=== PATIENT | male | born 2000 ===

== ENCOUNTER 2021-12-13 06:24 | Emergency (ER) | payer OTHER ==
[2021-12-13] MEDS ORDERED: NALOXONE 0.4 MG/ML 1 ML VIAL IV STA (06:27)
[2021-12-13] MEDS ORDERED: SODIUM CHLORIDE 0.9% 500 ML 500 ML IV STA (06:27)
[2021-12-13] MEDS ORDERED: SODIUM CHLORIDE 0.9% 1,000 ML IV STA ×2 (06:27)
[2021-12-13 06:29] LABS: Glucose,Whole Blood 137 mg/dL (75-99)
--- NOTE | 2021-12-13 06:49 | XR ---
EXAMINATION TYPE: XR chest 1V portable DATE OF EXAM: 12/13/2021 COMPARISON: NONE HISTORY: Altered mental status TECHNIQUE: Single view FINDINGS: Heart is enlarged. There is some pulmonary interstitial edema. There are chest leads. There is no definite pleural effusion. IMPRESSION: Moderate cardiomegaly. Mild pulmonary interstitial edema.
[2021-12-13 06:55] LABS: Anisocytosis Slight; Hypochromasia Marked; MCH 34.5 pg (25.0-35.0); MCHC 25.6 g/dL (31.0-37.0); Macrocytosis Marked; Mean Platelet Volume 14.8; RDW 17.4 % (11.5-15.5)
--- NOTE | 2021-12-13 06:55 | CT ---
EXAMINATION TYPE: CT brain wo con DATE OF EXAM: 12/13/2021 COMPARISON: None. HISTORY: AMS CT DLP: 1158.4 mGycm. Automated Exposure Control for Dose Reduction was Utilized. TECHNIQUE: CT scan of the head is performed without contrast. FINDINGS: Some artifact limitation at level of skull base. There is no acute intracranial hemorrhage , mass effect, or midline shift identified. The ventricles and sulci are within normal limits in siz e. Ibarra-white matter differentiation is maintained. The globes are intact and the visualized sinuses are clear. Persistent anterior metopic suture. IMPRESSION: No acute intracranial hemorrhage, mass effect, or midline shift is seen.
[2021-12-13 07:07] LABS: Acetaminophen <10.0 ug/mL; African American GFR (CKD) 57 (>60 ml/min/1.73 sqM); Albumin 4.4 g/dL (3.5-5.0); Alkaline Phosphatase 57 U/L (38-126); Blood Urea Nitrogen 21 mg/dL (9-20); Calcium 8.9 mg/dL (8.4-10.2); Chloride 100 mmol/L (98-107); Glucose 111 mg/dL (74-99); Magnesium 3.8 mg/dL (1.6-2.3); Non-African American GFR(CKD) 49 (>60 ml/min/1.73 sqM); Salicylate <1.0 mg/dL; Sodium 138 mmol/L (137-145); Total Protein 7.2 g/dL (6.3-8.2); VBG PH 6.69 (7.31-7.41)
[2021-12-13 07:11] LABS: ABG PCO2 24 mmHg (35-45); ABG PO2 190 mmHg (83-108); ABG TCO2 4 mmol/L (19-24); Allen Test Performed? Yes
[2021-12-13] MEDS ORDERED: SODIUM BICARB 8.4% 50 ML SYR (1 MEQ/ML) IV STA (07:20)
[2021-12-13 07:21] LABS: INR 2.4 (<1.2); Partial Thromboplastin Time 44.4 sec (22.0-30.0); Prothrombin Time 24.2 sec (9.0-12.0)
[2021-12-13 07:23] LABS: ALT 1115 U/L (4-49); AST 1061 U/L (17-59); Carbon Dioxide <5 mmol/L (22-30); Potassium 6.2 mmol/L (3.5-5.1)
[2021-12-13] MEDS ORDERED: VANCOMYCIN IV PER PHARMACY 1 EACH MISC MISCELLANE PRN (07:24)
[2021-12-13] MEDS ORDERED: PIPERACILLIN-TAZOBACTAM 3.375 GM in SODIUM CHLORIDE 0.9% 100 ML IVPB STA (07:24)
[2021-12-13 07:27] LABS: ABG PH <6.80 (7.35-7.45)
[2021-12-13 07:28] LABS: ABG HCO3 3 mmol/L (21-25)
--- NOTE | 2021-12-13 07:28 | XR ---
EXAMINATION TYPE: XR chest 1V portable DATE OF EXAM: 12/13/2021 COMPARISON: 12/13/2021 HISTORY: Chest pain TECHNIQUE: Single frontal view of the chest is obtained. FINDINGS: Endotracheal tube is in position with its distal tip approximately 3.8 cm from the anne. There is e vidence of cardiomegaly with pulmonary venous engorgement. No focal consolidation noted at this time. The osseous structures are intact. IMPRESSION: 1. Endotracheal tube is in position with its distal tip approximately 3.8 cm from the anne. There is evidence of cardiomegaly with pulmonary venous engorgement.
[2021-12-13] MEDS ORDERED: VANCOMYCIN 2,500 MG in SODIUM CHLORIDE 0.9% 500 ML 500 ML IVPB STA (07:29)
[2021-12-13] MEDS ORDERED: PANTOPRAZOLE 40 MG/10 ML VIAL IVP STA (07:30)
--- NOTE | 2021-12-13 07:32 | ED ---
Altered Mental Status HPI <Blu Fair - Last Filed: 12/13/21 09:15> - General Source: police, EMS, RN notes reviewed, old records reviewed Mode of arrival: EMS Limitations: altered mental status, physical limitation - History of Present Illness MD Complaint: altered mental status, decreased responsiveness -: minutes(s) Severity: severe Consistency of Symptoms: getting worse Context: unknown Associated Symptoms: denies other symptoms Treatments Prior to Arrival: oxygen <Watson Vila - Last Filed: 12/13/21 21:34> - General Chief Complaint: Altered Mental Status Stated Complaint: Unresponsive Time Seen by Provider: 12/13/21 06:26 - History of Present Illness Initial Comments: This is a 21-year-old male who presents in severe distress. Patient is brought in from [facility] for unknown surrounding circumstances. Per [facility] staff patient is acting normal last night and didn't last night went to bed early per his roommates. He went to the bathroom today when he came back from the bathroom he was unresponsive and not acting appropriately. Patient emergency department today nonresponsiveness, history obtained from EMS and [facility] staff (Watson Vila) - Related Data Home Medications Medication Instructions Recorded Confirmed No Known Home Medications 12/13/21 12/13/21 Allergies Allergy/AdvReac Type Severity Reaction Status Date / Time No Known Allergies Allergy Verified 12/13/21 07:31 Review of Systems ROS Other: All systems not noted in ROS Statement are negative. <Blu Fair - Last Filed: 12/13/21 09:15> ROS Other: All systems not noted in ROS Statement are negative. <Watson Vila - Last Filed: 12/13/21 21:34> ROS Statement: Those systems with pertinent positive or pertinent negative responses have been documented in the HPI. Past Medical History Past Medical History: Unable to Obtain History of Any Multi-Drug Resistant Organisms: None Reported Past Surgical History: Unable to Obtain Past Psychological History: No Psychological Hx Reported Smoking Status: Never smoker Past Alcohol Use History: None Reported Past Drug Use History: None Reported <Watson Vila - Last Filed: 12/13/21 21:34> General Exam Limitations: altered mental status, physical limitation General appearance: anxious, obtunded, in distress Head exam: Present: atraumatic, normocephalic, normal inspection Eye exam: Present: normal appearance. Absent: scleral icterus, conjunctival injection, periorbital swelling ENT exam: Present: normal exam, mucous membranes dry Neck exam: Present: normal inspection. Absent: tenderness, meningismus, lymphadenopathy Respiratory exam: Present: normal lung sounds bilaterally. Absent: respiratory distress, wheezes, rales, rhonchi, stridor Cardiovascular Exam: Present: normal rhythm, tachycardia, normal heart sounds. Absent: systolic murmur, diastolic murmur, rubs, gallop, clicks GI/Abdominal exam: Present: soft, normal bowel sounds. Absent: distended, tenderness, guarding, rebound, rigid Extremities exam: Present: normal inspection, full ROM, normal capillary refill. Absent: tenderness, pedal edema, joint swelling, calf tenderness Back exam: Present: normal inspection Neurological exam: Present: altered (Unresponsive) Psychiatric exam: Present: depressed Skin exam: Present: cyanosis, pallor, mottled <Watson Vila - Last Filed: 12/13/21 21:34> - General Exam Comments Initial Comments: GCS of 3 Unresponsive Tachypnea Cyanotic Significantly pale (Watson Vila) Course <Watson Vila - Last Filed: 12/13/21 21:34> Vital Signs 12/13/21 12/13/21 12/13/21 06:25 07:03 07:32 Temperature 97.6 F 97.6 F Pulse Rate 101 H 106 H 115 H Respiratory 34 H 20 18 Rate Blood Pressure 141/55 129/45 122/54 O2 Sat by Pulse 93 L 90 L 97 Oximetry 12/13/21 12/13/21 12/13/21 07:35 07:45 07:57 Temperature 97.7 F 97.7 F 97.3 F L Pulse Rate 112 H 113 H 112 H Respiratory 18 18 18 Rate Blood Pressure 140/61 128/67 137/65 O2 Sat by Pulse 100 97 Oximetry 12/13/21 12/13/21 12/13/21 08:00 08:28 08:49 Temperature Pulse Rate 112 H 110 H 112 H Respiratory 18 16 18 Rate Blood Pressure 132/73 122/57 O2 Sat by Pulse 98 100 100 Oximetry 12/13/21 09:00 Temperature 97.3 F L Pulse Rate 113 H Respiratory Rate Blood Pressure 122/57 O2 Sat by Pulse 100 Oximetry - Reevaluation(s) Reevaluation #1: 12/13/21 07:33 Medical record is reviewed (Watson Vila) Reevaluation #2: 12/13/21 07:33 We're able to reach patient's mother she is unable to provide a medical history patient according to her has no medical problems (Watson Vila) Reevaluation #3: 12/13/21 07:33 Patient is intubated central line placed 12/13/21 07:33 Patient not showing purposeful neurological movement (Watson Vila) Procedures - Central Line Placement Right IJ Consent Obtained: verbal consent Prep: gown, gloves Local Anesthesia Used: Lidocaine 1% Ultrasound Used for Placement: Yes Central Line Lumen Inserted: triple Bloods Obtained for Lab: No Central Line Position: good blood return, all ports aspirated, flushed, capped, sutured in place with 3-0 nylon Dressing Applied: Tegaderm Post Procedure X-Ray: tip of catheter in good position Patient Tolerated Procedure: well Complications: none - Intubation Sedative: Versed Paralytic: Succinylcholine Laryngoscope: Sofya Size: 4 ET Tube Size: 7.5 ET Tube Uncuffed: Yes Tube Secured Location: teeth Tube Placement Confirmation: visualized tube passing through cords Patient Tolerated Procedure: well Intubation Complications: none <Watson Vila - Last Filed: 12/13/21 21:34> Medical Decision Making - Lab Data Result diagrams: 12/13/21 06:30 12/13/21 06:30 <Blu Fair - Last Filed: 12/13/21 09:15> - Lab Data Result diagrams: 12/13/21 06:30 12/13/21 06:30 - Radiology Data Radiology results: report reviewed (Chest x-ray shows malrotation pulmonary edema, repeat chest x-ray shows positive ET tube placement, CT brain is negative for acute disease), image reviewed <Watson Vila - Last Filed: 12/13/21 21:34> - Medical Decision Making Patient care is signed out to me by previous shift physician. Briefly, patient on 21-year-old male found unresponsive at the [facility]. According to reports patient was well-appearing last night had no complaints. Over the last several weeks there was no concern about patient's medical condition. This morning was found down. At the time of signout patient was intubated and central venous catheter was placed in the right internal jugular. Discussion was held with mother Lexus at phone number of [phone]. According to Lexus patient does not have any medical history. Officer at the bedside reports that patient does not have any medical history does not take any medications. There is little concern of drug overdose however loan servicing officer reports that it is possible for patient to obtain medications from other incarcerated individuals. Labs show INR 2.4, arch a blood gas pH less than 6.8, bicarb of 30 pCO2 of 24. Metabolic panel shows potassium 6.2, bicarbonate less than 5. Acute kidney injury with a creatinine 1.91 and BUN of 21. Phosphorus of 12.0, troponin 0.198, liver enzymes with AST of 1061 and ALT 1115. Stool occult blood is negative. Tox labs so far are unremarkable. Metabolic panel suggests metabolic acidosis. Labs suspicious of oncologic emergency. His hemoglobin is 312 with a hemoglobin of 1.8. Massive transfusion protocol was initiated by previous shift physician. Some history was obtained from [facility] [place] Dr. Zheng reports that some of patient's roommates says that patient has been feeling well for the last 3 days. Gerber reports that there is perhaps chance that he may have taken Seroquel or BuSpar as prescribed for another inmate. He did receive report from lab at approximately 7:40 AM reports that patient's white blood cell count is 312, hemoglobin 1.8 with high blast cell count. Case was discussed in detail with Dr. Roberts of hematology/oncology recommends IV hydration and rasburicase. Per Dr. Roberts requested patient be transferred immediately to [facility] for further care. Dr. Roberts states that he would prefer to take over patient care there. Dr. Roberts reports that he will call ahead to [facility] to expect patient to arrive there per his request. Spoke with Dr. Obrien at [facility] was willing to accept patients care for ear ER transfer. EKG interpretation: Ventricular rate 120, sinus tachycardia,. 144, care is 93, QTc 383. No RI prolongation, no QTC prolongation, no ST or T-wave changes noted. No old EKG for comparison. Overall, this EKG is unremarkable CT chest and pelvis ordered by Dr. Vila and resulted. Radiology review shows that patient has hepatosplenomegaly, pulmonary edema or pneumonia. There is an indeterminate lung nodule. There is appeared to be foreign body within the rectum. That is a temperature probe. (Blu Fair) - Lab Data Lab Results 12/13/21 12/13/21 12/13/21 Range/Units 06:27 06:30 06:30 WBC 312.1 H* (3.8-10.6) k/uL RBC 0.51 L (4.30-5.90) m/uL Hgb 1.8 L* (13.0-17.5) gm/dL Hct 6.9 L* (39.0-53.0) % MCV 134.5 H (80.0-100.0) fL MCH 34.5 (25.0-35.0) pg MCHC 25.6 L (31.0-37.0) g/dL RDW 17.4 H (11.5-15.5) % Plt Count 131 L (150-450) k/uL MPV 14.8 Neutrophils % Not Reportable Lymphocytes % Not Reportable Monocytes % Not Reportable Eosinophils % Not Reportable Basophils % Not Reportable Neutrophils # Not Reportable Lymphocytes # Not Reportable Monocytes # Not Reportable Eosinophils # Not Reportable Basophils # Not Reportable Pathologist Review See comment A Hypochromasia Marked Anisocytosis Slight Macrocytosis Marked A PT 24.2 H (9.0-12.0) sec INR 2.4 H (<1.2) APTT 44.4 H (22.0-30.0) sec Fibrinogen (200-500) mg/dL D-Dimer (<0.60) mg/L FEU Sample Site ABG pH (7.35-7.45) ABG pCO2 (35-45) mmHg ABG pO2 (83-108) mmHg ABG HCO3 (21-25) mmol/L ABG Total CO2 (19-24) mmol/L ABG O2 Saturation (94-97) % ABG Base Excess mmol/L Hema Test VBG pH (7.31-7.41) VBG pCO2 (37-51) mmHg VBG HCO3 (24-28) mmol/L FiO2 % Sodium (137-145) mmol/L Potassium (3.5-5.1) mmol/L Chloride (98-107) mmol/L Carbon Dioxide (22-30) mmol/L Anion Gap mmol/L BUN (9-20) mg/dL Creatinine (0.66-1.25) mg/dL Est GFR (CKD-EPI)AfAm (>60 ml/min/1.73 sqM) Est GFR (CKD-EPI)NonAf (>60 ml/min/1.73 sqM) Glucose (74-99) mg/dL POC Glucose (mg/dL) 137 H (75-99) mg/dL POC Glu [employer] ID Melissa, Johnie Osmolality ([phone]) mosm/kg Lactic Ac Sepsis Rflx Plasma Lactic Acid Nj (0.7-2.0) mmol/L Uric Acid (3.5-8.5) mg/dL Calcium (8.4-10.2) mg/dL Phosphorus (2.5-4.5) mg/dL Magnesium (1.6-2.3) mg/dL Total Bilirubin (0.2-1.3) mg/dL Conjugated Bilirubin (0.0-0.3) mg/dL Unconjugated Bilirubin (0.0-1.1) mg/dL Delta Bilirubin (0.0-0.2) mg/dL AST (17-59) U/L ALT (4-49) U/L Alkaline Phosphatase (38-126) U/L Ammonia (<30) umol/L Lactate Dehydrogenase (313-618) U/L Troponin I (0.000-0.034) ng/mL NT-Pro-B Natriuret Pep pg/mL Total Protein (6.3-8.2) g/dL Albumin (3.5-5.0) g/dL Urine Color Urine Appearance (Clear) Urine pH (5.0-8.0) Ur Specific [place] (1.001-1.035) Urine Protein (Negative) Urine Glucose (UA) (Negative) Urine Ketones (Negative) Urine Blood (Negative) Urine Nitrite (Negative) Urine Bilirubin (Negative) Urine Urobilinogen (<2.0) mg/dL Ur Leukocyte Esterase (Negative) Urine RBC (0-5) /hpf Urine WBC (0-5) /hpf Ur Squamous Epith Cells (0-4) /hpf Amorphous Sediment (None) /hpf Urine Bacteria (None) /hpf Hyaline Casts (0-2) /lpf Urine Mucus (None) /hpf Urine Osmolality (50-1400) mosm/kg Stool Occult Blood (Negative) Salicylates mg/dL Urine Opiates Screen (NotDetected) Ur Oxycodone Screen (NotDetected) Urine Methadone Screen (NotDetected) Ur Propoxyphene Screen (NotDetected) Acetaminophen ug/mL Ur Barbiturates Screen (NotDetected) U Tricyclic Antidepress (NotDetected) Ur Phencyclidine Scrn (NotDetected) Ur Amphetamines Screen (NotDetected) U Methamphetamines Scrn (NotDetected) U Benzodiazepines Scrn (NotDetected) Urine Cocaine Screen (NotDetected) U Marijuana (THC) Screen (NotDetected) Acetone, Qual (Negative) Coronavirus (PCR) (Not Detectd) Blood Type Blood Type Confirm Blood Type Recheck Bld Type Recheck Status Antibody Screen Crossmatch Spec Expiration Date 12/13/21 12/13/21 12/13/21 Range/Units 06:30 06:30 06:30 WBC (3.8-10.6) k/uL RBC (4.30-5.90) m/uL Hgb (13.0-17.5) gm/dL Hct (39.0-53.0) % MCV (80.0-100.0) fL MCH (25.0-35.0) pg MCHC (31.0-37.0) g/dL RDW (11.5-15.5) % Plt Count (150-450) k/uL MPV Neutrophils % Lymphocytes % Monocytes % Eosinophils % Basophils % Neutrophils # Lymphocytes # Monocytes # Eosinophils # Basophils # Pathologist Review Hypochromasia Anisocytosis Macrocytosis PT (9.0-12.0) sec INR (<1.2) APTT (22.0-30.0) sec Fibrinogen (200-500) mg/dL D-Dimer (<0.60) mg/L FEU Sample Site ABG pH (7.35-7.45) ABG pCO2 (35-45) mmHg ABG pO2 (83-108) mmHg ABG HCO3 (21-25) mmol/L ABG Total CO2 (19-24) mmol/L ABG O2 Saturation (94-97) % ABG Base Excess mmol/L Hema Test VBG pH (7.31-7.41) VBG pCO2 (37-51) mmHg VBG HCO3 (24-28) mmol/L FiO2 % Sodium 138 (137-145) mmol/L Potassium 6.2 H* (3.5-5.1) mmol/L Chloride 100 (98-107) mmol/L Carbon Dioxide <5 L* (22-30) mmol/L Anion Gap mmol/L BUN 21 H (9-20) mg/dL Creatinine 1.91 H (0.66-1.25) mg/dL Est GFR (CKD-EPI)AfAm 57 (>60 ml/min/1.73 sqM) Est GFR (CKD-EPI)NonAf 49 (>60 ml/min/1.73 sqM) Glucose 111 H (74-99) mg/dL POC Glucose (mg/dL) (75-99) mg/dL POC Glu [employer] Builder ID Osmolality ([phone]) mosm/kg Lactic Ac Sepsis Rflx Plasma Lactic Acid Nj >24.0 H* (0.7-2.0) mmol/L Uric Acid (3.5-8.5) mg/dL Calcium 8.9 (8.4-10.2) mg/dL Phosphorus 12.0 H* (2.5-4.5) mg/dL Magnesium 3.8 H (1.6-2.3) mg/dL Total Bilirubin 1.0 (0.2-1.3) mg/dL Conjugated Bilirubin (0.0-0.3) mg/dL Unconjugated Bilirubin (0.0-1.1) mg/dL Delta Bilirubin (0.0-0.2) mg/dL AST 1061 H (17-59) U/L ALT 1115 H (4-49) U/L Alkaline Phosphatase 57 (38-126) U/L Ammonia 356 H (<30) umol/L Lactate Dehydrogenase (313-618) U/L Troponin I 0.198 H* (0.000-0.034) ng/mL NT-Pro-B Natriuret Pep pg/mL Total Protein 7.2 (6.3-8.2) g/dL Albumin 4.4 (3.5-5.0) g/dL Urine Color Urine Appearance (Clear) Urine pH (5.0-8.0) Ur Specific [place] (1.001-1.035) Urine Protein (Negative) Urine Glucose (UA) (Negative) Urine Ketones (Negative) Urine Blood (Negative) Urine Nitrite (Negative) Urine Bilirubin (Negative) Urine Urobilinogen (<2.0) mg/dL Ur Leukocyte Esterase (Negative) Urine RBC (0-5) /hpf Urine WBC (0-5) /hpf Ur Squamous Epith Cells (0-4) /hpf Amorphous Sediment (None) /hpf Urine Bacteria (None) /hpf Hyaline Casts (0-2) /lpf Urine Mucus (None) /hpf Urine Osmolality (50-1400) mosm/kg Stool Occult Blood (Negative) Salicylates <1.0 mg/dL Urine Opiates Screen (NotDetected) Ur Oxycodone Screen (NotDetected) Urine Methadone Screen (NotDetected) Ur Propoxyphene Screen (NotDetected) Acetaminophen <10.0 ug/mL Ur Barbiturates Screen (NotDetected) U Tricyclic Antidepress (NotDetected) Ur Phencyclidine Scrn (NotDetected) Ur Amphetamines Screen (NotDetected) U Methamphetamines Scrn (NotDetected) U Benzodiazepines Scrn (NotDetected) Urine Cocaine Screen (NotDetected) U Marijuana (THC) Screen (NotDetected) Acetone, Qual Negative (Negative) Coronavirus (PCR) (Not Detectd) Blood Type Blood Type Confirm Blood Type Recheck Bld Type Recheck Status Antibody Screen Crossmatch Spec Expiration Date 12/13/21 12/13/21 12/13/21 Range/Units 06:30 06:30 06:30 WBC (3.8-10.6) k/uL RBC (4.30-5.90) m/uL Hgb (13.0-17.5) gm/dL Hct (39.0-53.0) % MCV (80.0-100.0) fL MCH (25.0-35.0) pg MCHC (31.0-37.0) g/dL RDW (11.5-15.5) % Plt Count (150-450) k/uL MPV Neutrophils % Lymphocytes % Monocytes % Eosinophils % Basophils % Neutrophils # Lymphocytes # Monocytes # Eosinophils # Basophils # Pathologist Review Hypochromasia Anisocytosis Macrocytosis PT (9.0-12.0) sec INR (<1.2) APTT (22.0-30.0) sec Fibrinogen (200-500) mg/dL D-Dimer (<0.60) mg/L FEU Sample Site ABG pH (7.35-7.45) ABG pCO2 (35-45) mmHg ABG pO2 (83-108) mmHg ABG HCO3 (21-25) mmol/L ABG Total CO2 (19-24) mmol/L ABG O2 Saturation (94-97) % ABG Base Excess mmol/L Hema Test VBG pH 6.69 L* (7.31-7.41) VBG pCO2 26 L (37-51) mmHg VBG HCO3 3 L* (24-28) mmol/L FiO2 % Sodium (137-145) mmol/L Potassium (3.5-5.1) mmol/L Chloride (98-107) mmol/L Carbon Dioxide (22-30) mmol/L Anion Gap mmol/L BUN (9-20) mg/dL Creatinine (0.66-1.25) mg/dL Est GFR (CKD-EPI)AfAm (>60 ml/min/1.73 sqM) Est GFR (CKD-EPI)NonAf (>60 ml/min/1.73 sqM) Glucose (74-99) mg/dL POC Glucose (mg/dL) (75-99) mg/dL POC Glu Race Engine Builder ID Osmolality ([phone]) mosm/kg Lactic Ac Sepsis Rflx Plasma Lactic Acid Nj (0.7-2.0) mmol/L Uric Acid 16.1 H* (3.5-8.5) mg/dL Calcium (8.4-10.2) mg/dL Phosphorus (2.5-4.5) mg/dL Magnesium (1.6-2.3) mg/dL Total Bilirubin (0.2-1.3) mg/dL Conjugated Bilirubin (0.0-0.3) mg/dL Unconjugated Bilirubin (0.0-1.1) mg/dL Delta Bilirubin (0.0-0.2) mg/dL AST (17-59) U/L ALT (4-49) U/L Alkaline Phosphatase (38-126) U/L Ammonia (<30) umol/L Lactate Dehydrogenase (313-618) U/L Troponin I (0.000-0.034) ng/mL NT-Pro-B Natriuret Pep 7780 pg/mL Total Protein (6.3-8.2) g/dL Albumin (3.5-5.0) g/dL Urine Color Urine Appearance (Clear) Urine pH (5.0-8.0) Ur Specific [place] (1.001-1.035) Urine Protein (Negative) Urine Glucose (UA) (Negative) Urine Ketones (Negative) Urine Blood (Negative) Urine Nitrite (Negative) Urine Bilirubin (Negative) Urine Urobilinogen (<2.0) mg/dL Ur Leukocyte Esterase (Negative) Urine RBC (0-5) /hpf Urine WBC (0-5) /hpf Ur Squamous Epith Cells (0-4) /hpf Amorphous Sediment (None) /hpf Urine Bacteria (None) /hpf Hyaline Casts (0-2) /lpf Urine Mucus (None) /hpf Urine Osmolality (50-1400) mosm/kg Stool Occult Blood (Negative) Salicylates mg/dL Urine Opiates Screen (NotDetected) Ur Oxycodone Screen (NotDetected) Urine Methadone Screen (NotDetected) Ur Propoxyphene Screen (NotDetected) Acetaminophen ug/mL Ur Barbiturates Screen (NotDetected) U Tricyclic Antidepress (NotDetected) Ur Phencyclidine Scrn (NotDetected) Ur Amphetamines Screen (NotDetected) U Methamphetamines Scrn (NotDetected) U Benzodiazepines Scrn (NotDetected) Urine Cocaine Screen (NotDetected) U Marijuana (THC) Screen (NotDetected) Acetone, Qual (Negative) Coronavirus (PCR) (Not Detectd) Blood Type Blood Type Confirm Blood Type Recheck Bld Type Recheck Status Antibody Screen Crossmatch Spec Expiration Date 12/13/21 12/13/21 12/13/21 Range/Units 06:30 06:30 06:30 WBC (3.8-10.6) k/uL RBC (4.30-5.90) m/uL Hgb (13.0-17.5) gm/dL Hct (39.0-53.0) % MCV (80.0-100.0) fL MCH (25.0-35.0) pg MCHC (31.0-37.0) g/dL RDW (11.5-15.5) % Plt Count (150-450) k/uL MPV Neutrophils % Lymphocytes % Monocytes % Eosinophils % Basophils % Neutrophils # Lymphocytes # Monocytes # Eosinophils # Basophils # Pathologist Review Hypochromasia Anisocytosis Macrocytosis PT (9.0-12.0) sec INR (<1.2) APTT (22.0-30.0) sec Fibrinogen 436 (200-500) mg/dL D-Dimer 17.38 H (<0.60) mg/L FEU Sample Site ABG pH (7.35-7.45) ABG pCO2 (35-45) mmHg ABG pO2 (83-108) mmHg ABG HCO3 (21-25) mmol/L ABG Total CO2 (19-24) mmol/L ABG O2 Saturation (94-97) % ABG Base Excess mmol/L Hema Test VBG pH (7.31-7.41) VBG pCO2 (37-51) mmHg VBG HCO3 (24-28) mmol/L FiO2 % Sodium (137-145) mmol/L Potassium (3.5-5.1) mmol/L Chloride (98-107) mmol/L Carbon Dioxide (22-30) mmol/L Anion Gap mmol/L BUN (9-20) mg/dL Creatinine (0.66-1.25) mg/dL Est GFR (CKD-EPI)AfAm (>60 ml/min/1.73 sqM) Est GFR (CKD-EPI)NonAf (>60 ml/min/1.73 sqM) Glucose (74-99) mg/dL POC Glucose (mg/dL) (75-99) mg/dL POC Glu [employer] Engine Builder ID Osmolality 304 H ([phone]) mosm/kg Lactic Ac Sepsis Rflx Plasma Lactic Acid Nj (0.7-2.0) mmol/L Uric Acid (3.5-8.5) mg/dL Calcium (8.4-10.2) mg/dL Phosphorus (2.5-4.5) mg/dL Magnesium (1.6-2.3) mg/dL Total Bilirubin 1.0 (0.2-1.3) mg/dL Conjugated Bilirubin 0.0 (0.0-0.3) mg/dL Unconjugated Bilirubin 0.7 (0.0-1.1) mg/dL Delta Bilirubin 0.3 H (0.0-0.2) mg/dL AST (17-59) U/L ALT (4-49) U/L Alkaline Phosphatase (38-126) U/L Ammonia (<30) umol/L Lactate Dehydrogenase (313-618) U/L Troponin I (0.000-0.034) ng/mL NT-Pro-B Natriuret Pep pg/mL Total Protein (6.3-8.2) g/dL Albumin (3.5-5.0) g/dL Urine Color Urine Appearance (Clear) Urine pH (5.0-8.0) Ur Specific [place] (1.001-1.035) Urine Protein (Negative) Urine Glucose (UA) (Negative) Urine Ketones (Negative) Urine Blood (Negative) Urine Nitrite (Negative) Urine Bilirubin (Negative) Urine Urobilinogen (<2.0) mg/dL Ur Leukocyte Esterase (Negative) Urine RBC (0-5) /hpf Urine WBC (0-5) /hpf Ur Squamous Epith Cells (0-4) /hpf Amorphous Sediment (None) /hpf Urine Bacteria (None) /hpf Hyaline Casts (0-2) /lpf Urine Mucus (None) /hpf Urine Osmolality (50-1400) mosm/kg Stool Occult Blood (Negative) Salicylates mg/dL Urine Opiates Screen (NotDetected) Ur Oxycodone Screen (NotDetected) Urine Methadone Screen (NotDetected) Ur Propoxyphene Screen (NotDetected) Acetaminophen ug/mL Ur Barbiturates Screen (NotDetected) U Tricyclic Antidepress (NotDetected) Ur Phencyclidine Scrn (NotDetected) Ur Amphetamines Screen (NotDetected) U Methamphetamines Scrn (NotDetected) U Benzodiazepines Scrn (NotDetected) Urine Cocaine Screen (NotDetected) U Marijuana (THC) Screen (NotDetected) Acetone, Qual (Negative) Coronavirus (PCR) (Not Detectd) Blood Type Blood Type Confirm O Positive Blood Type Recheck Bld Type Recheck Status Antibody Screen Crossmatch Spec Expiration Date 12/13/21 12/13/21 12/13/21 Range/Units 06:30 06:35 07:08 WBC (3.8-10.6) k/uL RBC (4.30-5.90) m/uL Hgb (13.0-17.5) gm/dL Hct (39.0-53.0) % MCV (80.0-100.0) fL MCH (25.0-35.0) pg MCHC (31.0-37.0) g/dL RDW (11.5-15.5) % Plt Count (150-450) k/uL MPV Neutrophils % Lymphocytes % Monocytes % Eosinophils % Basophils % Neutrophils # Lymphocytes # Monocytes # Eosinophils # Basophils # Pathologist Review Hypochromasia Anisocytosis Macrocytosis PT (9.0-12.0) sec INR (<1.2) APTT (22.0-30.0) sec Fibrinogen (200-500) mg/dL D-Dimer (<0.60) mg/L FEU Sample Site rrad ABG pH <6.80 L* (7.35-7.45) ABG pCO2 24 L (35-45) mmHg ABG pO2 190 H (83-108) mmHg ABG HCO3 3 L* (21-25) mmol/L ABG Total CO2 4 L (19-24) mmol/L ABG O2 Saturation 0.0 L (94-97) % ABG Base Excess -34.0 mmol/L Hema Test Yes VBG pH (7.31-7.41) VBG pCO2 (37-51) mmHg VBG HCO3 (24-28) mmol/L FiO2 100 % Sodium (137-145) mmol/L Potassium (3.5-5.1) mmol/L Chloride (98-107) mmol/L Carbon Dioxide (22-30) mmol/L Anion Gap mmol/L BUN (9-20) mg/dL Creatinine (0.66-1.25) mg/dL Est GFR (CKD-EPI)AfAm (>60 ml/min/1.73 sqM) Est GFR (CKD-EPI)NonAf (>60 ml/min/1.73 sqM) Glucose (74-99) mg/dL POC Glucose (mg/dL) (75-99) mg/dL POC Glu [employer] Engine Builder ID Osmolality ([phone]) mosm/kg Lactic Ac Sepsis Rflx Plasma Lactic Acid Nj (0.7-2.0) mmol/L Uric Acid (3.5-8.5) mg/dL Calcium (8.4-10.2) mg/dL Phosphorus (2.5-4.5) mg/dL Magnesium (1.6-2.3) mg/dL Total Bilirubin (0.2-1.3) mg/dL Conjugated Bilirubin (0.0-0.3) mg/dL Unconjugated Bilirubin (0.0-1.1) mg/dL Delta Bilirubin (0.0-0.2) mg/dL AST (17-59) U/L ALT (4-49) U/L Alkaline Phosphatase (38-126) U/L Ammonia (<30) umol/L Lactate Dehydrogenase 7945 H (313-618) U/L Troponin I (0.000-0.034) ng/mL NT-Pro-B Natriuret Pep pg/mL Total Protein (6.3-8.2) g/dL Albumin (3.5-5.0) g/dL Urine Color Urine Appearance (Clear) Urine pH (5.0-8.0) Ur Specific [place] (1.001-1.035) Urine Protein (Negative) Urine Glucose (UA) (Negative) Urine Ketones (Negative) Urine Blood (Negative) Urine Nitrite (Negative) Urine Bilirubin (Negative) Urine Urobilinogen (<2.0) mg/dL Ur Leukocyte Esterase (Negative) Urine RBC (0-5) /hpf Urine WBC (0-5) /hpf Ur Squamous Epith Cells (0-4) /hpf Amorphous Sediment (None) /hpf Urine Bacteria (None) /hpf Hyaline Casts (0-2) /lpf Urine Mucus (None) /hpf Urine Osmolality (50-1400) mosm/kg Stool Occult Blood (Negative) Salicylates mg/dL Urine Opiates Screen (NotDetected) Ur Oxycodone Screen (NotDetected) Urine Methadone Screen (NotDetected) Ur Propoxyphene Screen (NotDetected) Acetaminophen ug/mL Ur Barbiturates Screen (NotDetected) U Tricyclic Antidepress (NotDetected) Ur Phencyclidine Scrn (NotDetected) Ur Amphetamines Screen (NotDetected) U Methamphetamines Scrn (NotDetected) U Benzodiazepines Scrn (NotDetected) Urine Cocaine Screen (NotDetected) U Marijuana (THC) Screen (NotDetected) Acetone, Qual (Negative) Coronavirus (PCR) (Not Detectd) Blood Type O Positive Blood Type Confirm Blood Type Recheck No Previous Record Bld Type Recheck Status CABO Indicated Antibody Screen NEGATIVE Crossmatch See Detail Spec Expiration Date 12/16/2021 - 233412/13/21 12/13/21 12/13/21 Range/Units 07:18 07:19 07:19 WBC (3.8-10.6) k/uL RBC (4.30-5.90) m/uL Hgb (13.0-17.5) gm/dL Hct (39.0-53.0) % MCV (80.0-100.0) fL MCH (25.0-35.0) pg MCHC (31.0-37.0) g/dL RDW (11.5-15.5) % Plt Count (150-450) k/uL MPV Neutrophils % Lymphocytes % Monocytes % Eosinophils % Basophils % Neutrophils # Lymphocytes # Monocytes # Eosinophils # Basophils # Pathologist Review Hypochromasia Anisocytosis Macrocytosis PT (9.0-12.0) sec INR (<1.2) APTT (22.0-30.0) sec Fibrinogen (200-500) mg/dL D-Dimer (<0.60) mg/L FEU Sample Site ABG pH (7.35-7.45) ABG pCO2 (35-45) mmHg ABG pO2 (83-108) mmHg ABG HCO3 (21-25) mmol/L ABG Total CO2 (19-24) mmol/L ABG O2 Saturation (94-97) % ABG Base Excess mmol/L Hema Test VBG pH (7.31-7.41) VBG pCO2 (37-51) mmHg VBG HCO3 (24-28) mmol/L FiO2 % Sodium (137-145) mmol/L Potassium (3.5-5.1) mmol/L Chloride (98-107) mmol/L Carbon Dioxide (22-30) mmol/L Anion Gap mmol/L BUN (9-20) mg/dL Creatinine (0.66-1.25) mg/dL Est GFR (CKD-EPI)AfAm (>60 ml/min/1.73 sqM) Est GFR (CKD-EPI)NonAf (>60 ml/min/1.73 sqM) Glucose (74-99) mg/dL POC Glucose (mg/dL) (75-99) mg/dL POC Glu [employer] ID Osmolality ([phone]) mosm/kg Lactic Ac Sepsis Rflx Plasma Lactic Acid Nj (0.7-2.0) mmol/L Uric Acid (3.5-8.5) mg/dL Calcium (8.4-10.2) mg/dL Phosphorus (2.5-4.5) mg/dL Magnesium (1.6-2.3) mg/dL Total Bilirubin (0.2-1.3) mg/dL Conjugated Bilirubin (0.0-0.3) mg/dL Unconjugated Bilirubin (0.0-1.1) mg/dL Delta Bilirubin (0.0-0.2) mg/dL AST (17-59) U/L ALT (4-49) U/L Alkaline Phosphatase (38-126) U/L Ammonia (<30) umol/L Lactate Dehydrogenase (313-618) U/L Troponin I (0.000-0.034) ng/mL NT-Pro-B Natriuret Pep pg/mL Total Protein (6.3-8.2) g/dL Albumin (3.5-5.0) g/dL Urine Color Yellow Urine Appearance Cloudy (Clear) Urine pH 5.5 (5.0-8.0) Ur Specific [place] 1.012 (1.001-1.035) Urine Protein 2+ H (Negative) Urine Glucose (UA) Negative (Negative) Urine Ketones 1+ H (Negative) Urine Blood Moderate H (Negative) Urine Nitrite Negative (Negative) Urine Bilirubin Negative (Negative) Urine Urobilinogen <2.0 (<2.0) mg/dL Ur Leukocyte Esterase Negative (Negative) Urine RBC 15 H (0-5) /hpf Urine WBC 14 H (0-5) /hpf Ur Squamous Epith Cells 1 (0-4) /hpf Amorphous Sediment Moderate H (None) /hpf Urine Bacteria Rare H (None) /hpf Hyaline Casts 42 H (0-2) /lpf Urine Mucus Rare H (None) /hpf Urine Osmolality (50-1400) mosm/kg Stool Occult Blood Negative (Negative) Salicylates mg/dL Urine Opiates Screen Not Detected (NotDetected) Ur Oxycodone Screen Not Detected (NotDetected) Urine Methadone Screen Not Detected (NotDetected) Ur Propoxyphene Screen Not Detected (NotDetected) Acetaminophen ug/mL Ur Barbiturates Screen Not Detected (NotDetected) U Tricyclic Antidepress Not Detected (NotDetected) Ur Phencyclidine Scrn Not Detected (NotDetected) Ur Amphetamines Screen Not Detected (NotDetected) U Methamphetamines Scrn Not Detected (NotDetected) U Benzodiazepines Scrn Not Detected (NotDetected) Urine Cocaine Screen Not Detected (NotDetected) U Marijuana (THC) Screen Not Detected (NotDetected) Acetone, Qual (Negative) Coronavirus (PCR) (Not Detectd) Blood Type Blood Type Confirm Blood Type Recheck Bld Type Recheck Status Antibody Screen Crossmatch Spec Expiration Date 12/13/21 12/13/21 12/13/21 Range/Units 07:19 07:54 08:22 WBC (3.8-10.6) k/uL RBC (4.30-5.90) m/uL Hgb (13.0-17.5) gm/dL Hct (39.0-53.0) % MCV (80.0-100.0) fL MCH (25.0-35.0) pg MCHC (31.0-37.0) g/dL RDW (11.5-15.5) % Plt Count (150-450) k/uL MPV Neutrophils % Lymphocytes % Monocytes % Eosinophils % Basophils % Neutrophils # Lymphocytes # Monocytes # Eosinophils # Basophils # Pathologist Review Hypochromasia Anisocytosis Macrocytosis PT (9.0-12.0) sec INR (<1.2) APTT (22.0-30.0) sec Fibrinogen (200-500) mg/dL D-Dimer (<0.60) mg/L FEU Sample Site ABG pH (7.35-7.45) ABG pCO2 (35-45) mmHg ABG pO2 (83-108) mmHg ABG HCO3 (21-25) mmol/L ABG Total CO2 (19-24) mmol/L ABG O2 Saturation (94-97) % ABG Base Excess mmol/L Hema Test VBG pH (7.31-7.41) VBG pCO2 (37-51) mmHg VBG HCO3 (24-28) mmol/L FiO2 % Sodium (137-145) mmol/L Potassium (3.5-5.1) mmol/L Chloride (98-107) mmol/L Carbon Dioxide (22-30) mmol/L Anion Gap mmol/L BUN (9-20) mg/dL Creatinine (0.66-1.25) mg/dL Est GFR (CKD-EPI)AfAm (>60 ml/min/1.73 sqM) Est GFR (CKD-EPI)NonAf (>60 ml/min/1.73 sqM) Glucose (74-99) mg/dL POC Glucose (mg/dL) (75-99) mg/dL POC Glu [employer] ID Osmolality ([phone]) mosm/kg Lactic Ac Sepsis Rflx Y Plasma Lactic Acid Nj (0.7-2.0) mmol/L Uric Acid (3.5-8.5) mg/dL Calcium (8.4-10.2) mg/dL Phosphorus (2.5-4.5) mg/dL Magnesium (1.6-2.3) mg/dL Total Bilirubin (0.2-1.3) mg/dL Conjugated Bilirubin (0.0-0.3) mg/dL Unconjugated Bilirubin (0.0-1.1) mg/dL Delta Bilirubin (0.0-0.2) mg/dL AST (17-59) U/L ALT (4-49) U/L Alkaline Phosphatase (38-126) U/L Ammonia (<30) umol/L Lactate Dehydrogenase (313-618) U/L Troponin I (0.000-0.034) ng/mL NT-Pro-B Natriuret Pep pg/mL Total Protein (6.3-8.2) g/dL Albumin (3.5-5.0) g/dL Urine Color Urine Appearance (Clear) Urine pH (5.0-8.0) Ur Specific [place] (1.001-1.035) Urine Protein (Negative) Urine Glucose (UA) (Negative) Urine Ketones (Negative) Urine Blood (Negative) Urine Nitrite (Negative) Urine Bilirubin (Negative) Urine Urobilinogen (<2.0) mg/dL Ur Leukocyte Esterase (Negative) Urine RBC (0-5) /hpf Urine WBC (0-5) /hpf Ur Squamous Epith Cells (0-4) /hpf Amorphous Sediment (None) /hpf Urine Bacteria (None) /hpf Hyaline Casts (0-2) /lpf Urine Mucus (None) /hpf Urine Osmolality 335 (50-1400) mosm/kg Stool Occult Blood (Negative) Salicylates mg/dL Urine Opiates Screen (NotDetected) Ur Oxycodone Screen (NotDetected) Urine Methadone Screen (NotDetected) Ur Propoxyphene Screen (NotDetected) Acetaminophen ug/mL Ur Barbiturates Screen (NotDetected) U Tricyclic Antidepress (NotDetected) Ur Phencyclidine Scrn (NotDetected) Ur Amphetamines Screen (NotDetected) U Methamphetamines Scrn (NotDetected) U Benzodiazepines Scrn (NotDetected) Urine Cocaine Screen (NotDetected) U Marijuana (THC) Screen (NotDetected) Acetone, Qual (Negative) Coronavirus (PCR) Not Detected (Not Detectd) Blood Type Blood Type Confirm Blood Type Recheck Bld Type Recheck Status Antibody Screen Crossmatch Spec Expiration Date Critical Care Time Critical Care Time: Yes Total Critical Care Time: 95 <Watson Vila - Last Filed: 12/13/21 21:34> Disposition - Out of Hospital Transfer - Req. Specs Out of Hospital Transfer - Requested Specifics: Other Emergency Center ([facility]) <Blu Fair - Last Filed: 12/13/21 09:15> Is patient prescribed a controlled substance at d/c from ED?: No <Watson Vila - Last Filed: 12/13/21 21:34> Clinical Impression: Altered mental status, Acute respiratory failure, ARF (acute renal failure), Shock liver, Acidosis, Non-STEMI (non-ST elevated myocardial infarction), Hyperkalemia, Anemia, Leukocytosis, Pancytopenia, Lactic acidosis, Hyperammonemia, Pulmonary edema Disposition: OTHER INSTITUTION NOT DEFINED Condition: Critical Referrals: None,Stated [Primary Care Provider] - 1-2 days
[2021-12-13 07:33] LABS: RBC 0.51 m/uL (4.30-5.90)
[2021-12-13 07:34] LABS: HCT 6.9 % (39.0-53.0); HGB 1.8 gm/dL (13.0-17.5)
[2021-12-13 07:42] LABS: WBC 312.1 k/uL (3.8-10.6)
[2021-12-13 07:43] LABS: Bilirubin, Delta 0.3 mg/dL (0.0-0.2); Bilirubin,Unconjugated 0.7 mg/dL (0.0-1.1); MCV 134.5 fL (80.0-100.0)
[2021-12-13] MEDS ORDERED: RASBURICASE 6 MG in SODIUM CHLORIDE 0.9% 46 ML IV ONE (07:48)
[2021-12-13] MEDS ORDERED: SODIUM CHLORIDE 0.9% 1,000 ML IV ONE (07:51)
[2021-12-13 07:54] LABS: Lactic Acid, Venous >24.0 mmol/L (0.7-2.0)
--- NOTE | 2021-12-13 07:57 | XR ---
EXAMINATION TYPE: XR chest 1V portable DATE OF EXAM: 12/13/2021 COMPARISON: 12/13/2021 HISTORY: Central line placement TECHNIQUE: Single frontal view of the chest is obtained. FINDINGS: Right IJ central venous line with distal tip overlying the SVC. No evidence for pneumothorax. NG tube is seen coursing into the stomach. Endotracheal tube is appropriately placed. Continued cardiomegaly and pulmonary venous congestion. The osseous structures are intact. IMPRESSION: 1. Right IJ central venous line with distal tip overlying the SVC. No evidence for pneumothorax.
[2021-12-13 08:00] VITALS: TEMP 97.3
[2021-12-13] MEDS ORDERED: MIDAZOLAM HCL 50 MG in SODIUM CHLORIDE 0.9% 40 ML IV SCH (08:00)
[2021-12-13] MEDS ORDERED: SODIUM CHLORIDE 0.9% 1,000 ML IV SCH (08:00)
[2021-12-13 08:13] LABS: Amorphous Sediment,Urine Moderate /hpf; Appearance,Urine Cloudy (Clear); Bacteria,Urine Rare /hpf; Bilirubin,Urine Negative (Negative); Blood,Urine Moderate (Negative); Color,Urine Yellow; Glucose,Urine (UA) Negative (Negative); Hyaline Casts,Urine 42 /lpf (0-2); Ketones,Urine 1+ (Negative); Leukocyte Esterase,Urine Negative (Negative); Mucus,Urine Rare /hpf; Nitrite,Urine Negative (Negative); PH, Urine 5.5 (5.0-8.0); Protein,Urine 2+ (Negative); RBC,Urine 15 /hpf (0-5); Specific Gravity,Urine 1.012 (1.001-1.035); Squamous Epithelial Cell,Urine 1 /hpf (0-4); Urobilinogen,Urine <2.0 mg/dL (<2.0); WBC,Urine 14 /hpf (0-5)
[2021-12-13] MEDS ORDERED: MIDAZOLAM 1 MG/ML 5 ML VIAL IV STA (08:13)
[2021-12-13 08:15] LABS: Amphetamine Screen,Urine Not Detected (NotDetected); Barbiturate Screen,Urine Not Detected (NotDetected); Benzodiazepines Screen,Urine Not Detected (NotDetected); Cocaine Screen,Urine Not Detected (NotDetected); Methadone Screen, Urine Not Detected (NotDetected); Opiate Screen,Urine Not Detected (NotDetected); Oxycodone Screen, Urine Not Detected (NotDetected); Phencyclidine Screen,Urine Not Detected (NotDetected); Tricyclic Antidepressant,Urine Not Detected (NotDetected); Urn Cannabinoid Scrn Not Detected (NotDetected)
[2021-12-13 08:50] VITALS: BP 122/57; RESP 18
--- NOTE | 2021-12-13 08:58 | CT ---
EXAMINATION TYPE: CT ChestAbdPelvis wo con DATE OF EXAM: 12/13/2021 COMPARISON: Chest x-ray 12/13/2021 HISTORY: Unresponsive, AMS CT DLP: 730.5 mGycm. Automated Exposure Control for Dose Reduction was Utilized. TECHNIQUE: CT scan of the thorax, abdomen and pelvis is performed without IV contrast. FINDINGS: Lack of intravenous contrast could compromise sensitivity. NG tube is present with the tip in the stomach. Endotracheal tube is within the tracheal air column. Right jugular central venous catheter shows the tip near the cavoatrial junction. Questionable promin ence of the musculature in the supraclavicular region could be related to some local hemorrhage or te [place]nique, correlate for local neck swelling. LUNGS: There is some groundglass increased attenuation within the lungs. Motion is present. Suspect a nodular density in the right lower lobe, axial image 25 measuring 7 mm. There is no pneumothorax see n. Some probable basilar atelectatic changes are present, minimal right pleural effusion The tracheob ronchial tree is patent. MEDIASTINUM: There are no greater than 1 cm hilar or mediastinal lymph nodes. No pericardial effusi on is seen. OTHER: No additional significant abnormality is seen. LIVER/GB: No mass within the liver, liver is enlarged, high dense material within the gallbladder may represent tumefactive sludge. PANCREAS: No significant abnormality is seen. SPLEEN: Enlarged. ADRENALS: No significant abnormality is seen. KIDNEYS: No significant abnormality is seen. BOWEL: Within the rectum there is a metallic line present courses through a redundant sigmoid colon. GENITAL ORGANS: No gross abnormality seen. LYMPH NODES: No greater than 1cm abdominal or pelvic lymph nodes are appreciated. OSSEOUS STRUCTURES: No significant abnormality is seen. OTHER: Ramirez catheter is in place, urinary bladder shows a thickened wall possibly due to lack of dis tention. Minimal free fluid suspected within the pelvis. IMPRESSION: Hepatosplenomegaly. Possible pulmonary edema or pneumonia. Noncontrast exam, follow-up as indicated. Indeterminate lung nodule. Correlate for foreign body within the rectum. Post instrumenta tion changes as described..
[2021-12-13 09:02] VITALS: PULSE 113
[2021-12-13 13:22] LABS: Platelet Count 131 k/uL (150-450)
[2021-12-14] MEDS ORDERED: VANCOMYCIN 2,250 MG in SODIUM CHLORIDE 0.9% 500 ML 500 ML IVPB SCH ×2
== END 2021-12-13 09:23 | disposition other institution (70) ==
LOC: EC 06:24
DX: R41.82 Altered mental status, unspecified (principal); J96.00 Acute respiratory failure, unspecified whether with hypoxia or hypercapnia; N17.9 Acute kidney failure, unspecified; K72.00 Acute and subacute hepatic failure without coma; E87.2 Acidosis; I21.4 Non-ST elevation (NSTEMI) myocardial infarction; E87.5 Hyperkalemia; D64.9 Anemia, unspecified; D72.829 Elevated white blood cell count, unspecified; D75.89 Other specified diseases of blood and blood-forming organs; E72.20 Disorder of urea cycle metabolism, unspecified; J81.1 Chronic pulmonary edema
CPT/HCPCS: 99291; 99292; 96365; 96367 ×2; 96375 ×2; 96361; 36556; 31500; 36430; 36415; 94660; 36600; 94002; 93005; 86900; 86901; 85379; 83930; 83880; 80053; 82140; 82248; 82805; 82803; 82009; 83605; 83615; 83735; 84100; 84550; 84484; 85025; 85384; 85610; 85730; 86850; 86920; 82272; 81001; 83935; 87040; 80306; 80143; 87086; 87635; 80179; 71045; 70450; 71250; 74176; P9016; J2543; J3370; J2250 ×2; J2783; C9113